=== PATIENT | female | born 1990 | race Caucasian/White ===

== ENCOUNTER → 2017-06-10 | Outpatient (REF) | payer OTHER, SELFPAY ==
[2017-06-10 18:41] LABS: FREE T4 0.97 NG/DL (0.76-1.46)
== END ==
LOC: M LAB REF 16:40
PROVIDERS: ATTEND Internal Medicine Nephrology
DX: N03.8 Chronic nephritic syndrome with other morphologic changes (principal); R80.9 Proteinuria, unspecified; E04.9 Nontoxic goiter, unspecified

== ENCOUNTER → 2017-07-07 | Outpatient (REF) | payer OTHER | LOC: M LAB REF 17:20 | PROVIDERS: ATTEND Internal Medicine Nephrology | DX: N03.8 Chronic nephritic syndrome with other morphologic changes (principal); R80.9 Proteinuria, unspecified; N18.2 Chronic kidney disease, stage 2 (mild) ==

== ENCOUNTER → 2017-07-22 | Outpatient (REF) | payer OTHER | LOC: M LAB REF 13:04 | PROVIDERS: ATTEND Internal Medicine Nephrology | DX: N03.8 Chronic nephritic syndrome with other morphologic changes (principal); R80.9 Proteinuria, unspecified ==

== ENCOUNTER → 2017-09-24 | Outpatient (REF) | payer OTHER ==
[2017-09-24 15:11] LABS: TOTAL PROTEIN,RANDOM URINE 18.5 MG/DL (0.0-12.0)
== END ==
LOC: M LAB REF 14:01
DX: N03.8 Chronic nephritic syndrome with other morphologic changes (principal); R80.9 Proteinuria, unspecified

== ENCOUNTER → 2018-04-29 | Outpatient (REF) | payer OTHER ==
[2018-04-29 19:22] LABS: TOTAL PROTEIN,RANDOM URINE 14.1 MG/DL (0.0-12.0)
== END ==
LOC: M LAB REF 17:18
DX: R80.9 Proteinuria, unspecified (principal); N03.8 Chronic nephritic syndrome with other morphologic changes
CPT/HCPCS: 84156

== ENCOUNTER → 2018-07-30 | Outpatient (REF) | payer OTHER ==
[2018-07-30 14:05] LABS: TOTAL PROTEIN,RANDOM URINE 45.4 MG/DL (0.0-12.0)
== END ==
LOC: M LAB REF 13:10
DX: R80.9 Proteinuria, unspecified (principal); N03.8 Chronic nephritic syndrome with other morphologic changes

== ENCOUNTER → 2018-11-04 | Outpatient (REF) | payer OTHER ==
[2018-11-04 14:07] LABS: PERCENT SATURATION 23.2 % (13.2-45.0)
== END ==
LOC: M LAB REF 13:19
PROVIDERS: ATTEND Internal Medicine Nephrology
DX: E61.8 Deficiency of other specified nutrient elements (principal); N03.8 Chronic nephritic syndrome with other morphologic changes; R80.9 Proteinuria, unspecified

== ENCOUNTER → 2019-02-09 | Outpatient (REF) | payer OTHER ==
[2019-02-09 13:31] LABS: BASO % 0.8 % (0.0-1.0); EOS % 0.8 % (0.0-3.0); HEMATOCRIT 38.8 % (36.0-47.0); HEMOGLOBIN 12.9 g/dl (12.0-15.5); LYMPH # 1.9 10^3/uL (1.5-6.5); LYMPH % 36.7 % (24.0-44.0); MEAN CORPUSCULAR HEMOGLOBIN 29.7 pg (27.0-33.0); MEAN CORPUSCULAR HGB CONC 33.2 g/dl (32.0-36.5); MEAN CORPUSCULAR VOLUME 89.4 fl (80.0-96.0); MONO # 0.3 10^3/uL (0.0-0.8); MONO % 6.3 % (0.0-5.0); NEUTROPHILS # 2.9 10^3/uL (1.8-7.7); NEUTROPHILS % 55.2 % (36.0-66.0); PLATELET COUNT, AUTOMATED 236 10^3/uL (150-450); RED BLOOD COUNT 4.34 10^6/uL (4.00-5.40); WHITE BLOOD COUNT 5.2 10^3/uL (4.0-10.0)
== END ==
LOC: M LAB REF 12:59
PROVIDERS: ATTEND Internal Medicine Nephrology
DX: N03.8 Chronic nephritic syndrome with other morphologic changes (principal); R80.9 Proteinuria, unspecified; N18.2 Chronic kidney disease, stage 2 (mild)

== ENCOUNTER → 2019-04-07 | Outpatient (REF) | payer OTHER | LOC: M SFHCLERA 18:21 | PROVIDERS: ATTEND Nurse Practitioner Family | DX: R30.0 Dysuria (principal) ==

== ENCOUNTER → 2019-08-09 | Outpatient (REF) | payer OTHER ==
[2019-08-09 18:48] LABS: FREE T4 0.89 NG/DL (0.76-1.46); THYROID STIMULATING HORMONE 5.21 uIU/ML (0.358-3.740)
== END ==
LOC: M LAB REF 16:53
PROVIDERS: ATTEND Internal Medicine Nephrology
DX: R30.0 Dysuria (principal); N03.8 Chronic nephritic syndrome with other morphologic changes; E03.9 Hypothyroidism, unspecified

== ENCOUNTER → 2019-11-14 | Outpatient (REF) | payer OTHER ==
[2019-11-14 11:53] LABS: BASO % 0.6 % (0.0-1.0); EOS % 0.9 % (0.0-3.0); HEMATOCRIT 41.7 % (36.0-47.0); LYMPH # 1.5 10^3/uL (1.5-5.0); LYMPH % 31.4 % (24.0-44.0); MEAN CORPUSCULAR HEMOGLOBIN 29.8 pg (27.0-33.0); MEAN CORPUSCULAR HGB CONC 33.6 g/dl (32.0-36.5); MEAN CORPUSCULAR VOLUME 88.7 fl (80.0-96.0); MONO # 0.2 10^3/uL (0.0-0.8); MONO % 4.7 % (0.0-5.0); NEUTROPHILS # 2.9 10^3/uL (1.5-8.5); NEUTROPHILS % 62.2 % (36.0-66.0); PLATELET COUNT, AUTOMATED 223 10^3/uL (150-450); WHITE BLOOD COUNT 4.7 10^3/uL (4.0-10.0)
[2019-11-14 12:21] LABS: ALBUMIN 3.9 GM/DL (3.2-5.2); ALT/SGPT 15 U/L (12-78); BILIRUBIN,TOTAL 0.4 MG/DL (0.2-1.0); BLOOD UREA NITROGEN 7 MG/DL (7-18); CALCIUM LEVEL 8.8 MG/DL (8.5-10.1); CARBON DIOXIDE LEVEL 26 MEQ/L (21-32); CHLORIDE LEVEL 108 MEQ/L (98-107); CK-MB VALUE MASS < 1.0 NG/ML (<3.6); CPK CREATINE PHOSPHOKINASE 66 U/L (26-192); CREATININE FOR GFR 0.81 MG/DL (0.55-1.30); GLOMERULAR FILTRATION RATE > 60.0 (>60); GLUCOSE, FASTING 87 MG/DL (70-100); MB/CK RELATIVE INDEX 1.52 (< OR =4); POTASSIUM SERUM 4.1 MEQ/L (3.5-5.1); SODIUM LEVEL 141 MEQ/L (136-145); TROPONIN I < 0.02 NG/ML (< 0.10)
== END ==
LOC: M SFHCLERA 09:55
PROVIDERS: ATTEND Nurse Practitioner Family
DX: R07.9 Chest pain, unspecified (principal)
CPT/HCPCS: 71046; 80053; 82550; 82553; 84484; 85025; 85379; 87804; 93005; G0463

== ENCOUNTER → 2019-11-14 | Outpatient (CLI) | payer OTHER ==
--- NOTE | 2019-11-14 11:09 | REP ---
CHEST, TWO VIEWS: There is no evidence of acute infiltrate. No pleural effusion is seen. The heart is normal in size. The mediastinal silhouette is unremarkable. The visualized osseous structures are intact. IMPRESSION: No acute pulmonary disease. Electronically Signed by Bhavesh Castro MD 11/14/2019 01:26 P
== END ==
LOC: M LRY 10:01
PROVIDERS: ATTEND Nurse Practitioner Family
DX: R07.9 Chest pain, unspecified (principal)

== ENCOUNTER → 2020-05-17 | Outpatient (REF) | payer OTHER | LOC: M LAB REF 16:57 | PROVIDERS: ATTEND Internal Medicine Nephrology | DX: N03.8 Chronic nephritic syndrome with other morphologic changes (principal); R80.9 Proteinuria, unspecified; N39.0 Urinary tract infection, site not specified ==

== ENCOUNTER → 2020-10-26 | Outpatient (REF) | payer OTHER ==
[2020-10-26 18:34] LABS: CREATININE 24 HOUR, URINE 1346.2 MG/24HR (600-1800); CREATININE, URINE 71.8 MG/DL; TOTAL PROTEIN 24 HOUR URINE 3665.6 MG/24HR (50-150); URINE TOTAL PROTEIN 195.5 MG/DL (0-12)
== END ==
LOC: M LAB REF 16:42
PROVIDERS: ATTEND Internal Medicine Nephrology
DX: N18.2 Chronic kidney disease, stage 2 (mild) (principal); R80.9 Proteinuria, unspecified; N03.8 Chronic nephritic syndrome with other morphologic changes

== ENCOUNTER → 2020-10-30 | Outpatient (REF) | payer OTHER ==
[2020-10-30 18:14] LABS: FREE T4 0.97 NG/DL (0.76-1.46); THYROID STIMULATING HORMONE 5.22 uIU/ML (0.358-3.740)
== END ==
LOC: M LAB REF 16:37
PROVIDERS: ATTEND Internal Medicine Nephrology
DX: N03.8 Chronic nephritic syndrome with other morphologic changes (principal); E03.9 Hypothyroidism, unspecified

== ENCOUNTER → 2020-11-13 | Outpatient (REF) | payer OTHER | LOC: M LAB REF 17:02 | PROVIDERS: ATTEND Internal Medicine Nephrology | DX: N18.2 Chronic kidney disease, stage 2 (mild) (principal); N03.8 Chronic nephritic syndrome with other morphologic changes ==

== ENCOUNTER → 2020-11-30 | Outpatient (REF) | payer OTHER | LOC: M LAB REF 16:56 | PROVIDERS: ATTEND Internal Medicine Nephrology | DX: N18.2 Chronic kidney disease, stage 2 (mild) (principal); N03.8 Chronic nephritic syndrome with other morphologic changes ==

== ENCOUNTER → 2021-01-08 | Outpatient (REF) | payer OTHER ==
[2021-01-08 18:42] LABS: CREATININE, URINE 38.2 MG/DL; URINE TOTAL PROTEIN 77.2 MG/DL (0-12)
[2021-01-08 20:12] LABS: CREATININE 24 HOUR, URINE 1155.5 MG/24HR (600-1800); TOTAL PROTEIN 24 HOUR URINE 2335.3 MG/24HR (50-150)
== END ==
LOC: M LAB REF 16:42
PROVIDERS: ATTEND Internal Medicine Nephrology
DX: R80.9 Proteinuria, unspecified (principal); N03.8 Chronic nephritic syndrome with other morphologic changes; N18.2 Chronic kidney disease, stage 2 (mild)

== ENCOUNTER → 2021-01-22 | Outpatient (CLI) | payer OTHER ==
--- NOTE | 2021-01-23 09:38 | REP ---
INDICATION: DISORDER OF THYROID COMPARISON: None. TECHNIQUE: Castro scale and color evaluation of the thyroid gland using the linear high frequency transducer. FINDINGS: The thyroid gland is normal in contour, shape, size, and overall parenchymal echogenicity. Right thyroid lobe measures 4.6 x 1.5 x 1.4 cm cm. Isthmus measures 2.4 mm and includes a 3.7 x 2.5 x 2.8 mm hypoechoic nonspecific nodule. Left thyroid lobe measures 3.9 x 1.2 x 1.4 cm. IMPRESSION: Small 4 mm hypoechoic nodule at the isthmus is nonspecific/indeterminate. <Electronically signed by Warren Duncan > 01/23/21 [id number]
== END ==
LOC: M RAD 11:20
PROVIDERS: ATTEND Internal Medicine Nephrology
DX: E04.9 Nontoxic goiter, unspecified (principal)

== ENCOUNTER → 2021-02-15 | Outpatient (REF) | payer OTHER | LOC: M LAB REF 17:21 | PROVIDERS: ATTEND Internal Medicine Nephrology | DX: N18.2 Chronic kidney disease, stage 2 (mild) (principal); N03.8 Chronic nephritic syndrome with other morphologic changes ==